=== PATIENT | female | born 1990 ===

== ENCOUNTER 2019-05-19 02:14 | Emergency (ER) | payer SELFPAY ==
[2019-05-19 03:19] LABS: Basophils % (Auto) 0.5 % (0.0-1.8); Eosinophils # (Auto) 0.2 K/mm3 (0.0-0.4); Eosinophils % (Auto) 4.2 % (0.0-4.3); Hematocrit 39.5 % (30.3-42.9); Hemoglobin 13.3 gm/dl (10.1-14.3); Lymphocytes # (Auto) 2.1 K/mm3 (1.2-5.4); Lymphocytes % (Auto) 46.1 % (13.4-35.0); Mean Corpuscular HGB Conc 34 % (30-34); Mean Corpuscular Volume 91 fl (79-97); Monocytes # (Auto) 0.3 K/mm3 (0.0-0.8); Monocytes % (Auto) 6.3 % (0.0-7.3); Platelet Count 305 K/mm3 (140-440); Red Blood Count 4.36 M/mm3 (3.65-5.03); Red Cell Distribution Width 13.6 % (13.2-15.2)
[2019-05-19 03:30] LABS: BUN/Creatinine Ratio 13; Blood Urea Nitrogen 9 mg/dL (7-17); Calcium 9.5 mg/dL (8.4-10.2); Hemolysis Index 5
[2019-05-19 03:45] LABS: Amphetamine Screen,Urine PRESUMPTIVE NEGATIVE; Benzodiazepines Screen,Urine PRESUMPTIVE NEGATIVE; Methadone Screen,Urine PRESUMPTIVE NEGATIVE; Opiate Screen,Urine PRESUMPTIVE NEGATIVE
[2019-05-19 04:01] LABS: Cannabinoid Screen,Urine PRESUMPTIVE POSITIVE; Cocaine Screen,Urine PRESUMPTIVE POSITIVE
[2019-05-19 04:05] LABS: Bilirubin,Urine NEG (Negative); Blood,Urine SM (Negative); Color,Urine Yellow (Yellow); Mucus,Urine 3+ /HPF; Protein,Urine <15 mg/dL mg/dL (Negative)
--- NOTE | 2019-05-19 04:07 | Emergency Department Report ---
ED Psych HPI - General Chief Complaint: Psych Stated Complaint: SI/DEPRESSION/MH EVAL Time Seen by Provider: 05/19/19 03:13 Source: patient, EMS Mode of arrival: Stretcher Limitations: No Limitations - History of Present Illness Initial Comments: 28-year-old female with a past medical history of anxiety and depression presents to the Hospital complaining of suicidal ideation, homelessness, and cocaine abuse. Patient is homeless as of today. She is picked up from a motel by EMS. Patient has history of previous overdose attempt but denies a specific plan today. No physical complaints reported. Patient states she relapsed and is abusing marijuana and cocaine. She is not currently taking any psychiatric medications. Denies auditory hallucinations. No physical complaints reported. - Related Data Home Medications Medication Instructions Recorded Confirmed Last Taken No Known Home Medications [No 05/19/19 05/19/19 Unknown Reported Home Medications] Allergies Allergy/AdvReac Type Severity Reaction Status Date / Time No Known Allergies Allergy Unverified 05/19/19 02:21 ED Review of Systems ROS: Stated complaint: SI/DEPRESSION/MH EVAL Other details as noted in HPI Comment: All other systems reviewed and negative ED Past Medical Hx - Past Medical History Previous Medical History?: Yes Hx Psychiatric Treatment: Yes (depression, anxiety) - Surgical History Past Surgical History?: No - Social History Smoking Status: Current Every Day Smoker - Medications Home Medications: Home Medications Medication Instructions Recorded Confirmed Last Taken Type No Known Home Medications [No 05/19/19 05/19/19 Unknown History Reported Home Medications] ED Physical Exam - General Limitations: No Limitations - Other Other exam information: General: No limitations, patient is alert in no acute distress Head exam: Atraumatic, normocephalic Eyes exam: Normal appearance ENT: Moist mucous membrane Neck exam: Normal inspection, full range of motion Respiratory exam: Clear to auscultation bilateral, no wheezes, rales, crackles Cardiovascular: Normal rate and rhythm Abdomen: Soft, nondistended, and nontender, with normal bowel sounds, no rebound, or guarding, Extremity: No deformity Back: Normal Inspection Neurologic: Alert, oriented x3, speech clear, no gross motor or sensory deficit Psychiatric: Normal mood, affect Skin: No rash ED Course Vital Signs 05/19/19 05/19/19 02:32 02:53 Temperature 98.3 F Pulse Rate 72 Respiratory 16 20 Rate Blood Pressure 118/90 [Left] O2 Sat by Pulse 100 98 Oximetry ED Medical Decision Making - Lab Data Result diagrams: 05/19/19 02:53 05/19/19 02:53 Lab Results 05/19/19 05/19/19 05/19/19 Range/Units 02:53 02:53 02:53 WBC (4.5-11.0) K/mm3 RBC (3.65-5.03) M/mm3 Hgb (10.1-14.3) gm/dl Hct (30.3-42.9) % MCV (79-97) fl MCH (28-32) pg MCHC (30-34) % RDW (13.2-15.2) % Plt Count (140-440) K/mm3 Lymph % (Auto) (13.4-35.0) % Peach % (Auto) (0.0-7.3) % Eos % (Auto) (0.0-4.3) % Baso % (Auto) (0.0-1.8) % Lymph # (1.2-5.4) K/mm3 Peach # (0.0-0.8) K/mm3 Eos # (0.0-0.4) K/mm3 Baso # (0.0-0.1) K/mm3 Seg Neutrophils % (40.0-70.0) % Seg Neutrophils # (1.8-7.7) K/mm3 Sodium (137-145) mmol/L Potassium (3.6-5.0) mmol/L Chloride (98-107) mmol/L Carbon Dioxide (22-30) mmol/L Anion Gap mmol/L BUN (7-17) mg/dL Creatinine (0.7-1.2) mg/dL Estimated GFR ml/min BUN/Creatinine Ratio % Glucose (65-100) mg/dL Calcium (8.4-10.2) mg/dL HCG, Qual (Negative) Urine Color Yellow (Yellow) Urine Turbidity Slightly-cloudy (Clear) Urine pH 6.0 (5.0-7.0) Ur Specific [place] 1.020 (1.003-1.030) Urine Protein <15 mg/dl (Negative) mg/dL Urine Glucose (UA) Neg (Negative) mg/dL Urine Ketones Neg (Negative) mg/dL Urine Blood Sm (Negative) Urine Nitrite Neg (Negative) Urine Bilirubin Neg (Negative) Urine Urobilinogen 2.0 (<2.0) mg/dL Ur Leukocyte Esterase Neg (Negative) Urine WBC (Auto) 8.0 H (0.0-6.0) /HPF Urine RBC (Auto) 5.0 (0.0-6.0) /HPF U Epithel Cells (Auto) 7.0 (0-13.0) /HPF Urine Mucus 3+ /HPF Salicylates < 0.3 L (2.8-20.0) mg/dL Urine Opiates Screen Urine Methadone Screen Acetaminophen < 5.0 L (10.0-30.0) ug/mL Ur Barbiturates Screen Ur Phencyclidine Scrn Ur Amphetamines Screen U Benzodiazepines Scrn Urine Cocaine Screen U Marijuana (THC) Screen Drugs of Abuse Note Plasma/Serum Alcohol (0-0.07) % 05/19/19 05/19/19 05/19/19 Range/Units 02:53 02:53 02:53 WBC (4.5-11.0) K/mm3 RBC (3.65-5.03) M/mm3 Hgb (10.1-14.3) gm/dl Hct (30.3-42.9) % MCV (79-97) fl MCH (28-32) pg MCHC (30-34) % RDW (13.2-15.2) % Plt Count (140-440) K/mm3 Lymph % (Auto) (13.4-35.0) % Peach % (Auto) (0.0-7.3) % Eos % (Auto) (0.0-4.3) % Baso % (Auto) (0.0-1.8) % Lymph # (1.2-5.4) K/mm3 Peach # (0.0-0.8) K/mm3 Eos # (0.0-0.4) K/mm3 Baso # (0.0-0.1) K/mm3 Seg Neutrophils % (40.0-70.0) % Seg Neutrophils # (1.8-7.7) K/mm3 Sodium 139 (137-145) mmol/L Potassium 3.8 (3.6-5.0) mmol/L Chloride 100.6 (98-107) mmol/L Carbon Dioxide 25 (22-30) mmol/L Anion Gap 17 mmol/L BUN 9 (7-17) mg/dL Creatinine 0.7 (0.7-1.2) mg/dL Estimated GFR > 60 ml/min BUN/Creatinine Ratio 13 % Glucose 98 (65-100) mg/dL Calcium 9.5 (8.4-10.2) mg/dL HCG, Qual (Negative) Urine Color (Yellow) Urine Turbidity (Clear) Urine pH (5.0-7.0) Ur Specific [place] (1.003-1.030) Urine Protein (Negative) mg/dL Urine Glucose (UA) (Negative) mg/dL Urine Ketones (Negative) mg/dL Urine Blood (Negative) Urine Nitrite (Negative) Urine Bilirubin (Negative) Urine Urobilinogen (<2.0) mg/dL Ur Leukocyte Esterase (Negative) Urine WBC (Auto) (0.0-6.0) /HPF Urine RBC (Auto) (0.0-6.0) /HPF U Epithel Cells (Auto) (0-13.0) /HPF Urine Mucus /HPF Salicylates (2.8-20.0) mg/dL Urine Opiates Screen Presumptive negative Urine Methadone Screen Presumptive negative Acetaminophen (10.0-30.0) ug/mL Ur Barbiturates Screen Presumptive negative Ur Phencyclidine Scrn Presumptive negative Ur Amphetamines Screen Presumptive negative U Benzodiazepines Scrn Presumptive negative Urine Cocaine Screen Presumptive positive U Marijuana (THC) Screen Presumptive positive Drugs of Abuse Note Disclamer Plasma/Serum Alcohol < 0.01 (0-0.07) % 05/19/19 05/19/19 Range/Units 02:53 02:53 WBC 4.6 (4.5-11.0) K/mm3 RBC 4.36 (3.65-5.03) M/mm3 Hgb 13.3 (10.1-14.3) gm/dl Hct 39.5 (30.3-42.9) % MCV 91 (79-97) fl MCH 31 (28-32) pg MCHC 34 (30-34) % RDW 13.6 (13.2-15.2) % Plt Count 305 (140-440) K/mm3 Lymph % (Auto) 46.1 H (13.4-35.0) % Peach % (Auto) 6.3 (0.0-7.3) % Eos % (Auto) 4.2 (0.0-4.3) % Baso % (Auto) 0.5 (0.0-1.8) % Lymph # 2.1 (1.2-5.4) K/mm3 Peach # 0.3 (0.0-0.8) K/mm3 Eos # 0.2 (0.0-0.4) K/mm3 Baso # 0.0 (0.0-0.1) K/mm3 Seg Neutrophils % 42.9 (40.0-70.0) % Seg Neutrophils # 2.0 (1.8-7.7) K/mm3 Sodium (137-145) mmol/L Potassium (3.6-5.0) mmol/L Chloride (98-107) mmol/L Carbon Dioxide (22-30) mmol/L Anion Gap mmol/L BUN (7-17) mg/dL Creatinine (0.7-1.2) mg/dL Estimated GFR ml/min BUN/Creatinine Ratio % Glucose (65-100) mg/dL Calcium (8.4-10.2) mg/dL HCG, Qual Negative (Negative) Urine Color (Yellow) Urine Turbidity (Clear) Urine pH (5.0-7.0) Ur Specific [place] (1.003-1.030) Urine Protein (Negative) mg/dL Urine Glucose (UA) (Negative) mg/dL Urine Ketones (Negative) mg/dL Urine Blood (Negative) Urine Nitrite (Negative) Urine Bilirubin (Negative) Urine Urobilinogen (<2.0) mg/dL Ur Leukocyte Esterase (Negative) Urine WBC (Auto) (0.0-6.0) /HPF Urine RBC (Auto) (0.0-6.0) /HPF U Epithel Cells (Auto) (0-13.0) /HPF Urine Mucus /HPF Salicylates (2.8-20.0) mg/dL Urine Opiates Screen Urine Methadone Screen Acetaminophen (10.0-30.0) ug/mL Ur Barbiturates Screen Ur Phencyclidine Scrn Ur Amphetamines Screen U Benzodiazepines Scrn Urine Cocaine Screen U Marijuana (THC) Screen Drugs of Abuse Note Plasma/Serum Alcohol (0-0.07) % - Medical Decision Making Patient is suicidal, homeless, and abuses cocaine. 1013 signed. Awaiting mental health evaluation - Differential Diagnosis depression, anxiety, drug abuse, suicidal, homeless Critical Care Time: No Critical care attestation.: If time is entered above; I have spent that time in minutes in the direct care of this critically ill patient, excluding procedure time. ED Disposition Clinical Impression: Suicidal ideations, Cocaine abuse, Homeless, Medical clearance for psychiatric admission Disposition: DC/TX-65 PSY HOSP/PSY UNIT Is pt being admited?: No Condition: Stable
[2019-05-20] MEDS ORDERED: MELATONIN 5 MG TAB PO PRN (12:38)
--- NOTE | 2019-05-20 12:38 | Consultation ---
History of Present Illness - Reason for Consult Consult date: 05/20/19 Reason for consult: suicidal ideation - Chief Complaint Chief complaint: suicidal ideation - History of Present Psychiatric Illness Silvina Quintana is a 28y/o female patient who says she is here because she is"suicidal and didn't feel safe at home." She is asleep. Easily arouses. She's a/o x 3. She is dressed appropriately. She makes fair eye contact. She is speaking in a barely audible tone. The patient says she is "homeless." She says she has diagnoses of "anxiety and depression." She says she's "been off her meds three months." She says she is "depressed and has nowhere to go." The patient says she currently uses "cocaine, weed, ecstasy, and alcohol." She also says she "smokes cigarets pack per day." The patient denies hallucinations of any kind. She says "I will probably hurt myself if I'm sent home. I don't know what else to do. That's why I'm so scared." PAST PSYCHIATRIC HISTORY: Diagnoses: "anxiety and depression" Suicide attempts or Self-harm behavior: denies Prior psychiatric hospitalizations: yes Substance Abuse history: Cocaine, THC, exstasy, alcohol, nicotine Previous psychiatric medications tried: "something for depression" Outpatient treatment: not in three months PAST MEDICAL HISTORY: none reported Family Psychiatric History None reported or documented SOCIAL HISTORY Marital Status: Single Living Arrangements: Homeless Employment Status: Unemployed Access to guns/weapons: Denies Education: some 12th grade History of Abuse: Denies Legal History: denies REVIEW OF SYSTEMS Constitutional: Negative for weight loss ENT: Negative for stridor Respiratory: Negative for cough or hemoptysis All other systems reviewed and are negative MSE Appearance: Dressed appropriately. Behavior: Fair eye contact, calm, cooperative Mood: depressed Affect: Congruent Thought Process: Goal directed Speech: low tone Thought Content Suicidal: Yes Homicidal: Denies Hallucinations: Denies Delusions: None elicited Consciousness: Alert Cognition/Memory: Fair Insight/Judgment: Limited Assessment: Major Depressive Disorder, Severe, w/o Psychotic Features Polysubstance Use Disorder Plan Continue 1013 Medications Lexapro 5mg po daily Melatonin 5mg po qhs prn insomnia Doxepin 10mg po qhs Geodon 10mg IM q6h prn agitation Sitter: defer to primary Medical: Per primary Disposition: The patient meets the requirements for acute inpatient psychiatric treatment. Please transfer to an appropriate psychiatric facility once medically cleared. Will follow until the patient is transferred Please call with any questions or concerns. Thank you for this consult. Medications and Allergies Allergies Allergy/AdvReac Type Severity Reaction Status Date / Time No Known Allergies Allergy Unverified 05/19/19 02:21 Home Medications Medication Instructions Recorded Confirmed Last Taken Type No Known Home Medications [No 05/19/19 05/19/19 Unknown History Reported Home Medications] Mental Status Exam - Vital signs Last Vital Signs Temp 97.7 F 05/20/19 01:37 Pulse 77 05/20/19 08:06 Resp 20 05/20/19 08:06 BP 96/63 05/20/19 08:06 Pulse Ox 99 05/20/19 08:06 Results Result Diagrams: 05/19/19 02:53 05/19/19 02:53 All other labs normal.
[2019-05-20] MEDS ORDERED: ZIPRASIDONE MESYLATE 20 MG VIAL IM PRN (12:39)
[2019-05-20] MEDS ORDERED: ESCITALOPRAM 10 MG TAB PO SCH (13:00)
[2019-05-20] MEDS ORDERED: DOXEPIN 10 MG CAP PO SCH (22:00)
[2019-05-21 07:51] VITALS: BP 102/73
== END 2019-05-21 07:45 ==
LOC: ED 02:14
DX: F41.9 Anxiety disorder, unspecified (principal); F32.9 Major depressive disorder, single episode, unspecified; F14.10 Cocaine abuse, uncomplicated; F17.200 Nicotine dependence, unspecified, uncomplicated; Z59.0 Homelessness
CPT/HCPCS: 36415; 80048; 80307; 80320; 81001; 84703; 85025; G0480

== ENCOUNTER 2020-02-16 17:37 | Emergency (ER) | payer SELFPAY ==
[2020-02-16] MEDS ORDERED: diphenhydrAMINE 50 MG/ML VIAL IM PRN (18:33)
[2020-02-16] MEDS ORDERED: LORazepam 2 MG/ML VIAL IM PRN (18:33)
[2020-02-16] MEDS ORDERED: HALOPERIDOL LACTATE 5 MG/1 ML INJ IM PRN (18:33)
--- NOTE | 2020-02-16 18:39 | Emergency Department Report ---
HPI - General Chief Complaint: Psych Time Seen by Provider: 02/16/20 18:32 - HPI HPI: Room 8 The patient is a 29-year-old female present with a chief complaint of bizarre behavior. Patient has a history of schizophrenia and drug abuse. The patient's cousin states she called the patient this morning to check on her and the patient eventually called her back asking her to pick her up. Cousin states she found the patient with bizarre behavior talking to people that were not there being delusional. The patient also told the cousin that she tried to kill herself by overdosing on meth but would not say when. Patient is erratic and agitated and does not answer questions ED Past Medical Hx - Past Medical History Hx Psychiatric Treatment: Yes (depression, anxiety, schizophrenia) - Surgical History Past Surgical History?: No - Family History Family history: no significant - Social History Smoking Status: Current Every Day Smoker (?) Substance Use Type: None, Methamphetamines - Medications Home Medications: Home Medications Medication Instructions Recorded Confirmed Last Taken Type traZODone [Desyrel] 50 mg PO QHS #15 tab 11/27/19 Unknown Rx ED Review of Systems ROS: Stated complaint: HALLUCINATING Other details as noted in HPI Comment: Unobtainable due to pts medical conditions Physical Exam - Physical Exam Physical Exam: GENERAL: The patient is well-developed well-nourished female lying on stretcher occasionally labile emotionally. [] HEENT: Normocephalic. Atraumatic. Extraocular motions are intact. Patient has moist mucous membranes. NECK: Supple. Trachea midline CHEST/LUNGS: Clear to auscultation. There is no respiratory distress noted. HEART/CARDIOVASCULAR: Regular. There is no tachycardia. There is no gallop rub or murmur. ABDOMEN: There is no abdominal distention. SKIN: There is no rash. There is no edema. There is no diaphoresis. NEURO: The patient is awake and alert. The patient is anxious and agitated. The patient has no focal neurologic deficits. The patient has normal speech (although agitated) and gait. MUSCULOSKELETAL: There is no evidence of acute injury. ED Medical Decision Making - Differential Diagnosis Schizophrenia, suicidal ideation Critical care attestation.: If time is entered above; I have spent that time in minutes in the direct care of this critically ill patient, excluding procedure time. ED Disposition Clinical Impression: Delusional disorder, Bizarre behavior, Schizophrenia, Suicidal ideation Disposition: DC/TX-65 PSY HOSP/PSY UNIT Is pt being admited?: No Does the pt Need Aspirin: No Condition: Stable
[2020-02-16 19:53] LABS: Bilirubin,Urine NEG (Negative); Blood,Urine NEG (Negative); Calcium Oxalate Crystals,Urine 1+; Color,Urine Amber (Yellow); Mucus,Urine 3+ /HPF
[2020-02-16 19:56] LABS: Amphetamine Screen,Urine PRESUMPTIVE POSITIVE; Benzodiazepines Screen,Urine PRESUMPTIVE NEGATIVE; Cannabinoid Screen,Urine PRESUMPTIVE POSITIVE; Cocaine Screen,Urine PRESUMPTIVE POSITIVE; Methadone Screen,Urine PRESUMPTIVE NEGATIVE; Opiate Screen,Urine PRESUMPTIVE NEGATIVE
[2020-02-16 20:31] LABS: BUN/Creatinine Ratio 21; Blood Urea Nitrogen 19 mg/dL (7-17); Calcium 9.1 mg/dL (8.4-10.2); Hemolysis Index 17
[2020-02-16 20:36] LABS: Eosinophils # (Auto) 0.6 K/mm3 (0.0-0.4); Eosinophils % (Auto) 11.7 % (0.0-4.3); Hematocrit 33.1 % (30.3-42.9); Hemoglobin 11.4 gm/dl (10.1-14.3); Lymphocytes % (Auto) 41.6 % (13.4-35.0); Mean Corpuscular HGB Conc 34 % (30-34); Mean Corpuscular Volume 90 fl (79-97); Monocytes # (Auto) 0.4 K/mm3 (0.0-0.8); Monocytes % (Auto) 8.4 % (0.0-7.3); Platelet Count 260 K/mm3 (140-440); Red Blood Count 3.68 M/mm3 (3.65-5.03); Red Cell Distribution Width 12.7 % (13.2-15.2)
[2020-02-17] MEDS ORDERED: POTASSIUM CHLORIDE ER 20 MEQ TAB PO ONE (20:50)
[2020-02-17] MEDS: POTASSIUM CHLORIDE ER 20 MEQ TAB PO SCH (21:07)
[2020-02-18] MEDS: POTASSIUM CHLORIDE ER 20 MEQ TAB PO SCH (09:49)
[2020-02-18] MEDS: NITROFURANTOIN MONOHYD/M-CRYST 100 MG CAP PO SCH ×2 (09:49→22:21)
--- NOTE | 2020-02-18 12:16 | Consultation ---
History of Present Illness - Reason for Consult Consult date: 02/18/20 Reason for consult: bizarre behavior, drugs - History of Present Psychiatric Illness Silvina Quintana is a 29y/o female patient who was brought to the ER by family for bizarre behavior, hallucinations, and drug use, according to medical record. During my interview with the patient she is a/o x 3. She is irritable. She says "everybody is getting in the was of my fcking money." She says "I've been through this a thousand times, committed than back homeless." The patient denies SI/HI or hallucinations of any kind. She verbalizes using "meth and crack." The patient says she has a history of "schizophrenia, anxiety and bipolar." She gave me permission to call her cousin and aunt. I called the cousin who three-wayed the aunt at bedside with the patient. They say they patient is "a threat to her own safety. She's aggressive, hallucinates, and can't take care of herself." The also says the patient "states she tried to overdose on drugs." Her aunt says "she's not going to tell you everything." PAST PSYCHIATRIC HISTORY: Diagnoses: Schizophrenia, anxiety and Bipolar Suicide attempts or Self-harm behavior: Denies Prior psychiatric hospitalizations: "a lot" Substance Abuse history: Cocaine, Meth Previous psychiatric medications tried: "I don't take meds" Outpatient treatment: Not recently PAST MEDICAL HISTORY: None reported Family Psychiatric History: None reported or documented SOCIAL HISTORY Marital Status: Single Living Arrangements: Homeless Employment Status: Unemployed Education: High school History of Abuse: None reported Legal History: None reported REVIEW OF SYSTEMS Constitutional: Negative for weight loss ENT: Negative for stridor Respiratory: Negative for cough or hemoptysis All other systems reviewed and are negative MENTAL STATUS EXAMINATION General Appearance: Dressed appropriately Behavior: fair eye contact, cooperative, irritable Cooperation: Participating/engaged Psychomotor Behavior: Psychomotor normal Mood: Upset Affect and affective range: congruent with mood Thought Process: goal oriented Thought Content: within reality Speech: Normal rate, volume and rhythm Suicidal Ideation: denies SI Homicidal Ideation: Denies HI Hallucinations: Denies Delusions: None elicited Impulse Control: unimpaired Insight and Judgment: Limited insight and judgment Memory: Normal Attention: Normal Orientation: Alert, oriented Assessment and Plan (1) Bipolar Disorder (2) Methamphetamine Use Disorder (3) Cocaine Use Disorder (4) Substance Induced Mood Disorder TREATMENT [address] 125mg po BID Risperidoone 0.25mg po BID Hydroxyzine 25mg po BID Folic acid 1mg po daily Trazodone 50mg po qhs Sitter: Per primary Medical: Per primary Disposition: Recommend acute inpatient psychiatric treatment Will continue to follow. Thank you for this consult. Medications and Allergies Allergies Allergy/AdvReac Type Severity Reaction Status Date / Time No Known Allergies Allergy Unverified 05/19/19 02:21 Home Medications Medication Instructions Recorded Confirmed Last Taken Type traZODone [Desyrel] 50 mg PO QHS #15 tab 11/27/19 Unknown Rx Active Meds: Active Medications Diphenhydramine HCl (Benadryl) 50 mg IM Q6H PRN PRN Reason: Agitation Last Admin: 02/16/20 19:34 Dose: 50 mg Documented by: Haloperidol Lactate (Haldol) 10 mg IM Q8H PRN PRN Reason: Agitation Last Admin: 02/16/20 19:34 Dose: 10 mg Documented by: Lorazepam (Ativan) 2 mg IM Q8H PRN PRN Reason: Agitation Last Admin: 02/16/20 19:34 Dose: 2 mg Documented by: Nitrofurantoin Macrocrystals (Macrobid) 100 mg PO BID [facility] Stop: 02/24/20 22:01 Last Admin: 02/18/20 09:49 Dose: 100 mg Documented by: Potassium Chloride (K-Dur) 40 meq PO QDAY [facility] Last Admin: 02/18/20 09:49 Dose: 40 meq Documented by: Mental Status Exam - Vital signs Last Vital Signs Temp 97.8 F 02/18/20 07:48 Pulse 60 02/18/20 07:48 Resp 20 02/18/20 07:48 BP 110/61 02/18/20 07:48 Pulse Ox 96 02/18/20 07:48 Results Result Diagrams: 02/16/20 19:39 02/18/20 05:35 All other labs normal.
[2020-02-18] MEDS: risperiDONE 0.25 MG TAB PO SCH ×2 (13:37→22:21)
[2020-02-18] MEDS: hydrOXYzine PAMOATE 25 MG CAP PO SCH ×2 (13:37→22:21)
[2020-02-18] MEDS: DIVALPROEX DR 125 MG TAB PO SCH ×2 (13:37→22:21)
[2020-02-18] MEDS: FOLIC ACID 1 MG TAB PO SCH (13:37)
[2020-02-18] MEDS ORDERED: traZODone 50 MG TAB PO SCH (22:00)
[2020-02-19 08:39] LABS: HCG Qualitative,Urine Negative (Negative)
--- NOTE | 2020-02-19 09:32 | Progress Note ---
Subjective - Reason for Consult Consult date: 02/19/20 Reason for consult: erratic behavior, polysubstance abuse - Chief Complaint Chief complaint: During my interview with the patient today, she is lying down. She is a/o x 3. She's upset about being in the hospital. The patient denies SI/HI and hallucinations of any kind, although her aunt and cousin believes the patient is a threat to herself, hallucinates, and told them she attempted to overdose on drugs. They are convinced the patient is not being upfront about what she is feeling. REVIEW OF SYSTEMS Constitutional: Negative for weight loss ENT: Negative for stridor Respiratory: Negative for cough or hemoptysis All other systems reviewed and are negative MENTAL STATUS EXAMINATION General Appearance: Dressed appropriately Behavior: fair eye contact, cooperative, irritable Cooperation: Participating/engaged Psychomotor Behavior: Psychomotor normal Mood: Upset Affect and affective range: congruent with mood Thought Process: goal oriented Thought Content: within reality Speech: Normal rate, volume and rhythm Suicidal Ideation: denies SI Homicidal Ideation: Denies HI Hallucinations: Denies Delusions: None elicited Impulse Control: unimpaired Insight and Judgment: Limited insight and judgment Memory: Normal Attention: Normal Orientation: Alert, oriented Assessment and Plan (1) Bipolar Disorder (2) Methamphetamine Use Disorder (3) Cocaine Use Disorder (4) Substance Induced Mood Disorder TREATMENT [address] 250mg po BID Increased Risperidoone 0.5mg po BID Sitter: Per primary Medical: Per primary Disposition: Recommend acute inpatient psychiatric treatment Will continue to follow. Thank you for this consult. Mental Status Exam - Vital signs Last Vital Signs Temp 97.6 F 02/19/20 08:20 Pulse 70 02/19/20 08:20 Resp 18 02/19/20 08:20 BP 119/72 02/19/20 08:20 Pulse Ox 98 02/19/20 08:20
[2020-02-19] MEDS ORDERED: DIVALPROEX DR 250 MG TAB PO SCH (10:00)
[2020-02-19] MEDS ORDERED: risperiDONE 0.25 MG TAB PO SCH (10:00)
[2020-02-19] MEDS: NITROFURANTOIN MONOHYD/M-CRYST 100 MG CAP PO SCH (11:02)
[2020-02-19] MEDS: FOLIC ACID 1 MG TAB PO SCH (11:02)
[2020-02-19] MEDS: POTASSIUM CHLORIDE ER 20 MEQ TAB PO SCH (11:03)
[2020-02-19] MEDS: hydrOXYzine PAMOATE 25 MG CAP PO SCH (11:05)
[2020-02-19 17:18] VITALS: BP 111/64
== END 2020-02-19 17:45 ==
LOC: ED 17:37
DX: F22 Delusional disorders (principal); R45.851 Suicidal ideations; F25.1 Schizoaffective disorder, depressive type; F17.200 Nicotine dependence, unspecified, uncomplicated; F15.90 Other stimulant use, unspecified, uncomplicated; F41.9 Anxiety disorder, unspecified; Z79.899 Other long term (current) drug therapy
CPT/HCPCS: 36415; 80048; 80307; 81001; 81025; 84132; 85025; 87086; 96372; 99285; J1200; J1630; J2060; Q0177; 80320; G0480

== ENCOUNTER 2020-09-08 16:14 | Emergency (ER) | payer OTHER, SELFPAY ==
[2020-09-08 17:45] LABS: Bilirubin,Urine NEG (Negative); Blood,Urine MOD (Negative); Color,Urine Yellow (Yellow); Protein,Urine <15 mg/dL mg/dL (Negative); Urobilinogen,Urine < 2.0 mg/dL (<2.0)
[2020-09-08 17:53] LABS: Amphetamine Screen,Urine Negative; Benzodiazepines Screen,Urine Negative; Cannabinoid Screen,Urine Negative; Cocaine Screen,Urine Negative; Methadone Screen,Urine Negative; Opiate Screen,Urine Negative
--- NOTE | 2020-09-08 18:26 | Event Note ---
ED Screening Note Date of service: 09/08/20 Time: 18:24 ED Screening Note: 29-year-old female patient with history of bipolar disorder, schizophrenia, anxiety, and depression presents to the emergency department requesting mental health evaluation. Patient has been experiencing auditory and visual hallucinations. Patient describes "angels with dark eyes talking to her at nighttime." States she "feels like people are after her." Patient was recently treated at another local mental health facility. She stayed for 4 days but was discharged without any prescriptions. Prior to her recent hospitalization, patient was taking Asher and Seroquel. It has been over 1 week since she has taken lithium. She states she felt as though lithium was helping but Seroquel did not. She also endorses a history of amphetamine abuse. She has previously experienced suicidal ideations but does not feel suicidal at this time. She states she "wants to get help before she gets to that point." Patient was recently homeless but is currently staying in a fpc, where she feels safe. General: Awake, appropriately interactive, no acute distress. Neck: Supple. Full range of motion intact. Cardiovascular: Normal peripheral perfusion. Pulmonary: No respiratory distress. Patient is speaking normally without use of accessory muscles. Skin: No apparent rashes or lesions. Neurological: No facial asymmetry. Speech is clear. Follows commands. Patient is alert and oriented. Musculoskeletal: Moves all four extremities spontaneously with normal range of motion. Psych: Cooperative. Appropriate mood and affect. I have greeted and performed a focused rapid initial assessment of this patient. A comprehensive ED assessment and evaluation of the patient, analysis of all test results, and completion of the medical decision-making process will be conducted by additional ED providers. This initial assessment/diagnostic orders/clinical plan/treatment(s) is/are subject to change based on patients health status, clinical progression and re-assessment. Further treatment and workup at subsequent clinical provider's discretion. Patient/guardian urged not to elope from the ED as their condition may be serious if not clinically assessed and managed.
[2020-09-08 18:43] LABS: Basophils % (Auto) 0.6 % (0.0-1.8); Eosinophils # (Auto) 0.2 K/mm3 (0.0-0.4); Hematocrit 35.4 % (30.3-42.9); Hemoglobin 12.1 gm/dl (10.1-14.3); Lymphocytes # (Auto) 2.3 K/mm3 (1.2-5.4); Lymphocytes % (Auto) 40.7 % (13.4-35.0); Mean Corpuscular HGB Conc 34 % (30-34); Mean Corpuscular Volume 89 fl (79-97); Monocytes # (Auto) 0.2 K/mm3 (0.0-0.8); Monocytes % (Auto) 4.2 % (0.0-7.3); Platelet Count 291 K/mm3 (140-440); Red Blood Count 3.97 M/mm3 (3.65-5.03); Red Cell Distribution Width 12.7 % (13.2-15.2)
[2020-09-08 19:04] LABS: Alanine Aminotransferase 12 units/L (7-56); Albumin 4.2 g/dL (3.9-5); Blood Urea Nitrogen 9 mg/dL (7-17); Calcium 8.8 mg/dL (8.4-10.2); Hemolysis Index 11
[2020-09-08 19:05] LABS: BUN/Creatinine Ratio 15
[2020-09-08] MEDS ORDERED: traZODone 50 MG TAB PO ONE (22:43)
--- NOTE | 2020-09-09 00:16 | Emergency Department Report ---
ED General Adult HPI - General Chief complaint: Psych Stated complaint: MH EVALUATIONS/HALLUCINATIONS Time Seen by Provider: 09/08/20 21:09 Source: patient Mode of arrival: Ambulatory Limitations: No Limitations - History of Present Illness Initial comments: The patient presents to the emergency department with a chief complaint of auditory and visual hallucinations. Patient states she has a history of schizophrenia but is also take amphetamines. Patient denies homicidal or suicidal ideations on my examination. Patient has no other complaints. -: unknown Improves with: none Worsens with: none Associated Symptoms: denies other symptoms Treatments Prior to Arrival: none - Related Data Allergies Allergy/AdvReac Type Severity Reaction Status Date / Time No Known Allergies Allergy Unverified 05/19/19 02:21 ED Review of Systems ROS: Stated complaint: MH EVALUATIONS/HALLUCINATIONS Other details as noted in HPI Constitutional: denies: chills, fever Eyes: denies: eye pain, eye discharge, vision change ENT: denies: ear pain, throat pain Respiratory: denies: cough, shortness of breath, wheezing Cardiovascular: denies: chest pain, palpitations Endocrine: no symptoms reported Gastrointestinal: denies: abdominal pain, nausea, diarrhea Genitourinary: denies: urgency, dysuria, discharge Musculoskeletal: denies: back pain, joint swelling, arthralgia Skin: denies: rash, lesions Neurological: denies: headache, weakness, paresthesias Psychiatric: auditory hallucinations, visual hallucinations. denies: anxiety, depression, homicidal thoughts, suicidal thoughts Hematological/Lymphatic: denies: easy bleeding, easy bruising ED Past Medical Hx - Past Medical History Hx Psychiatric Treatment: Yes (depression, anxiety, schizophrenia) - Surgical History Past Surgical History?: No - Social History Smoking Status: Current Every Day Smoker ED Physical Exam - General Limitations: No Limitations General appearance: alert, in no apparent distress - Head Head exam: Present: atraumatic, normocephalic - Eye Eye exam: Present: normal appearance - ENT ENT exam: Present: mucous membranes moist - Neck Neck exam: Present: normal inspection - Respiratory Respiratory exam: Present: normal lung sounds bilaterally. Absent: respiratory distress - Cardiovascular Cardiovascular Exam: Present: regular rate, normal rhythm. Absent: systolic murmur, diastolic murmur, rubs, gallop - GI/Abdominal GI/Abdominal exam: Present: soft, normal bowel sounds. Absent: distended, tenderness - Extremities Exam Extremities exam: Present: normal inspection - Back Exam Back exam: Present: normal inspection - Neurological Exam Neurological exam: Present: alert, oriented X3, CN II-XII intact. Absent: motor sensory deficit - Psychiatric Psychiatric exam: Present: normal affect, normal mood - Skin Skin exam: Present: warm, dry, intact, normal color. Absent: rash ED Course Vital Signs 09/08/20 09/08/20 17:06 22:01 Temperature 98.6 F 98.2 F Pulse Rate 98 H 99 H Respiratory 18 18 Rate Blood Pressure 115/75 Blood Pressure 120/92 [Right] O2 Sat by Pulse 100 99 Oximetry ED Medical Decision Making - Lab Data Result diagrams: 09/08/20 18:30 09/08/20 18:30 Lab Results 09/08/20 09/08/20 09/08/20 Range/Units 17:25 17:25 18:30 WBC 5.7 (4.5-11.0) K/mm3 RBC 3.97 (3.65-5.03) M/mm3 Hgb 12.1 (10.1-14.3) gm/dl Hct 35.4 (30.3-42.9) % MCV 89 (79-97) fl MCH 30 (28-32) pg MCHC 34 (30-34) % RDW 12.7 L (13.2-15.2) % Plt Count 291 (140-440) K/mm3 Lymph % (Auto) 40.7 H (13.4-35.0) % [place] % (Auto) 4.2 (0.0-7.3) % Eos % (Auto) 3.0 (0.0-4.3) % Baso % (Auto) 0.6 (0.0-1.8) % Lymph # (Auto) 2.3 (1.2-5.4) K/mm3 [place] # (Auto) 0.2 (0.0-0.8) K/mm3 Eos # (Auto) 0.2 (0.0-0.4) K/mm3 Baso # (Auto) 0.0 (0.0-0.1) K/mm3 Seg Neutrophils % 51.5 (40.0-70.0) % Seg Neutrophils # 3.0 (1.8-7.7) K/mm3 Sodium (137-145) mmol/L Potassium (3.6-5.0) mmol/L Chloride (98-107) mmol/L Carbon Dioxide (22-30) mmol/L Anion Gap mmol/L BUN (7-17) mg/dL Creatinine (0.6-1.2) mg/dL Estimated GFR ml/min BUN/Creatinine Ratio % Glucose (65-100) mg/dL Calcium (8.4-10.2) mg/dL Total Bilirubin (0.1-1.2) mg/dL AST (5-40) units/L ALT (7-56) units/L Alkaline Phosphatase (35-129) units/L Total Protein (6.3-8.2) g/dL Albumin (3.9-5) g/dL Albumin/Globulin Ratio % TSH (0.270-4.200) mlU/mL HCG, Qual (Negative) Urine Color Yellow (Yellow) Urine Turbidity Clear (Clear) Urine pH 6.0 (5.0-7.0) Ur Specific [place] 1.009 (1.003-1.030) Urine Protein <15 mg/dl (Negative) mg/dL Urine Glucose (UA) Neg (Negative) mg/dL Urine Ketones Neg (Negative) mg/dL Urine Blood Mod (Negative) Urine Nitrite Neg (Negative) Urine Bilirubin Neg (Negative) Urine Urobilinogen < 2.0 (<2.0) mg/dL Ur Leukocyte Esterase Neg (Negative) Urine WBC (Auto) 1.0 (0.0-6.0) /HPF Urine RBC (Auto) 2.0 (0.0-6.0) /HPF U Epithel Cells (Auto) 2.0 (0-13.0) /HPF Salicylates (2.8-20.0) mg/dL Urine Opiates Screen Negative Urine Methadone Screen Negative Acetaminophen (10.0-30.0) ug/mL Ur Barbiturates Screen Negative Ur Phencyclidine Scrn Negative Ur Amphetamines Screen Negative U Benzodiazepines Scrn Negative [place] (0.0-1.2) mmol/L Urine Cocaine Screen Negative U Marijuana (THC) Screen Negative Drugs of Abuse Note Disclamer Plasma/Serum Alcohol (0-0.07) % 09/08/20 09/08/20 09/08/20 Range/Units 18:30 18:30 18:30 WBC (4.5-11.0) K/mm3 RBC (3.65-5.03) M/mm3 Hgb (10.1-14.3) gm/dl Hct (30.3-42.9) % MCV (79-97) fl MCH (28-32) pg MCHC (30-34) % RDW (13.2-15.2) % Plt Count (140-440) K/mm3 Lymph % (Auto) (13.4-35.0) % [place] % (Auto) (0.0-7.3) % Eos % (Auto) (0.0-4.3) % Baso % (Auto) (0.0-1.8) % Lymph # (Auto) (1.2-5.4) K/mm3 [place] # (Auto) (0.0-0.8) K/mm3 Eos # (Auto) (0.0-0.4) K/mm3 Baso # (Auto) (0.0-0.1) K/mm3 Seg Neutrophils % (40.0-70.0) % Seg Neutrophils # (1.8-7.7) K/mm3 Sodium 136 L (137-145) mmol/L Potassium 3.7 (3.6-5.0) mmol/L Chloride 101.5 (98-107) mmol/L Carbon Dioxide 21 L (22-30) mmol/L Anion Gap 17 mmol/L BUN 9 (7-17) mg/dL Creatinine 0.6 (0.6-1.2) mg/dL Estimated GFR > 60 ml/min BUN/Creatinine Ratio 15 % Glucose 93 (65-100) mg/dL Calcium 8.8 (8.4-10.2) mg/dL Total Bilirubin < 0.20 (0.1-1.2) mg/dL AST 17 (5-40) units/L ALT 12 (7-56) units/L Alkaline Phosphatase 60 (35-129) units/L Total Protein 7.1 (6.3-8.2) g/dL Albumin 4.2 (3.9-5) g/dL Albumin/Globulin Ratio 1.4 % TSH 1.650 (0.270-4.200) mlU/mL HCG, Qual (Negative) Urine Color (Yellow) Urine Turbidity (Clear) Urine pH (5.0-7.0) Ur Specific [place] (1.003-1.030) Urine Protein (Negative) mg/dL Urine Glucose (UA) (Negative) mg/dL Urine Ketones (Negative) mg/dL Urine Blood (Negative) Urine Nitrite (Negative) Urine Bilirubin (Negative) Urine Urobilinogen (<2.0) mg/dL Ur Leukocyte Esterase (Negative) Urine WBC (Auto) (0.0-6.0) /HPF Urine RBC (Auto) (0.0-6.0) /HPF U Epithel Cells (Auto) (0-13.0) /HPF Salicylates < 0.3 L (2.8-20.0) mg/dL Urine Opiates Screen Urine Methadone Screen Acetaminophen (10.0-30.0) ug/mL Ur Barbiturates Screen Ur Phencyclidine Scrn Ur Amphetamines Screen U Benzodiazepines Scrn [place] 0.1 (0.0-1.2) mmol/L Urine Cocaine Screen U Marijuana (THC) Screen Drugs of Abuse Note Plasma/Serum Alcohol (0-0.07) % 09/08/20 09/08/20 09/08/20 Range/Units 18:30 18:30 18:30 WBC (4.5-11.0) K/mm3 RBC (3.65-5.03) M/mm3 Hgb (10.1-14.3) gm/dl Hct (30.3-42.9) % MCV (79-97) fl MCH (28-32) pg MCHC (30-34) % RDW (13.2-15.2) % Plt Count (140-440) K/mm3 Lymph % (Auto) (13.4-35.0) % [place] % (Auto) (0.0-7.3) % Eos % (Auto) (0.0-4.3) % Baso % (Auto) (0.0-1.8) % Lymph # (Auto) (1.2-5.4) K/mm3 [place] # (Auto) (0.0-0.8) K/mm3 Eos # (Auto) (0.0-0.4) K/mm3 Baso # (Auto) (0.0-0.1) K/mm3 Seg Neutrophils % (40.0-70.0) % Seg Neutrophils # (1.8-7.7) K/mm3 Sodium (137-145) mmol/L Potassium (3.6-5.0) mmol/L Chloride (98-107) mmol/L Carbon Dioxide (22-30) mmol/L Anion Gap mmol/L BUN (7-17) mg/dL Creatinine (0.6-1.2) mg/dL Estimated GFR ml/min BUN/Creatinine Ratio % Glucose (65-100) mg/dL Calcium (8.4-10.2) mg/dL Total Bilirubin (0.1-1.2) mg/dL AST (5-40) units/L ALT (7-56) units/L Alkaline Phosphatase (35-129) units/L Total Protein (6.3-8.2) g/dL Albumin (3.9-5) g/dL Albumin/Globulin Ratio % TSH (0.270-4.200) mlU/mL HCG, Qual Negative (Negative) Urine Color (Yellow) Urine Turbidity (Clear) Urine pH (5.0-7.0) Ur Specific [place] (1.003-1.030) Urine Protein (Negative) mg/dL Urine Glucose (UA) (Negative) mg/dL Urine Ketones (Negative) mg/dL Urine Blood (Negative) Urine Nitrite (Negative) Urine Bilirubin (Negative) Urine Urobilinogen (<2.0) mg/dL Ur Leukocyte Esterase (Negative) Urine WBC (Auto) (0.0-6.0) /HPF Urine RBC (Auto) (0.0-6.0) /HPF U Epithel Cells (Auto) (0-13.0) /HPF Salicylates (2.8-20.0) mg/dL Urine Opiates Screen Urine Methadone Screen Acetaminophen 5.0 L (10.0-30.0) ug/mL Ur Barbiturates Screen Ur Phencyclidine Scrn Ur Amphetamines Screen U Benzodiazepines Scrn [place] (0.0-1.2) mmol/L Urine Cocaine Screen U Marijuana (THC) Screen Drugs of Abuse Note Plasma/Serum Alcohol 0.02 (0-0.07) % - Medical Decision Making Patient was seen by mental health and after evaluation they asked for the patient to be placed on a 1013. ED hold apply Medically cleared Critical care attestation.: If time is entered above; I have spent that time in minutes in the direct care of this critically ill patient, excluding procedure time. ED Disposition Clinical Impression: Auditory hallucinations Disposition: DC-01 TO HOME OR SELFCARE Is pt being admited?: No Does the pt Need Aspirin: No Condition: Stable Referrals: PRIMARY CARE, [Primary Care Provider] - 3-5 Days
[2020-09-09 07:33] VITALS: BP 110/62
--- NOTE | 2020-09-09 11:36 | Consultation ---
History of Present Illness - Reason for Consult Consult date: 09/09/20 Reason for consult: MHE Requesting physician: CARL RUFFIN - History of Present Psychiatric Illness Per ED Provider: The patient presents to the emergency department with a chief complaint of auditory and visual hallucinations. Patient states she has a history of schizophrenia but is also take amphetamines. Patient denies homicidal or suicidal ideations on my examination. Patient has no other complaints. Psych HPI Patient is a 29-year-old single, currently unemployed -[place] female with past psychiatric history of schizophrenia anxiety and bipolar who presented to the ED with chief complaint of having hallucinations. Patient states that she has been having hallucination after doing drugs specifically meth, she reports that they are buying drugs on the street for quite a while after she was stopped on outpatient prescription medication for anxiety so many years ago. She endorses seeing dark images/visions. Patient states that she is not suicidal, or homicidal that she is here because she wants substance abuse treatment for meth. Patient stated that she had presented to [facility] but was informed she needs to be stabilized on the medication before she can be admitted for substance. Patient states that she is to be on trazodone and lithium. PAST PSYCHIATRIC HISTORY: Diagnoses: Schizophrenia, anxiety and Bipolar Suicide attempts or Self-harm behavior: Denies Prior psychiatric hospitalizations: "a lot" Substance Abuse history: Cocaine, Meth Previous psychiatric medications tried: "I don't take meds" Outpatient treatment: Not recently PAST MEDICAL HISTORY: None reported Family Psychiatric History: None reported or documented SOCIAL HISTORY Marital Status: Single Living Arrangements: With family Employment Status: Unemployed Education: High school History of Abuse: None reported Legal History: None reported REVIEW OF SYSTEMS Constitutional: Negative for weight loss ENT: Negative for stridor Respiratory: Negative for cough or hemoptysis All other systems reviewed and are negative MENTAL STATUS EXAMINATION General Appearance: Dressed appropriately Behavior: fair eye contact, cooperative, irritable Cooperation: Participating/engaged Psychomotor Behavior: Psychomotor normal Mood: Upset Affect and affective range: congruent with mood Thought Process: goal oriented Thought Content: within reality Speech: Normal rate, volume and rhythm Suicidal Ideation: denies SI Homicidal Ideation: Denies HI Hallucinations: Denies Delusions: None elicited Impulse Control: unimpaired Insight and Judgment: Limited insight and judgment Memory: Normal Attention: Normal Orientation: Alert, oriented Assessment and Plan - Psychiatric problem (1) Illicit drug use Current Visit: Yes Status: Acute Treatment Plan We will restart patient medication, patient aware and informed with do not do substance abuse treatment that has to be in an outpatient program. MEDICATIONS: Risks, benefits and alternatives of medications discussed with the patient, questions answered and consent obtained from patient. PSYCHOTHERAPY: Supportive psychotherapy provided MEDICAL: Per primary team DELIRIUM PRECAUTIONS: Please re-orient patient frequently, keep lights on during the day, and minimize benzodiazepines and opiates as these medications could worsen patient's confusion. 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 Case discussed with Dr. Ruiz who agrees with current disposition LEGAL STATUS: 1013 rescinded FOLLOW-UP: Will sign off Thank you for the consult. Please contact with any questions and/or concerns. Medications and Allergies Allergies Allergy/AdvReac Type Severity Reaction Status Date / Time No Known Allergies Allergy Unverified 05/19/19 02:21 Home Medications Medication Instructions Recorded Confirmed Last Taken Type [place] Carbonate 300 mg PO BID 09/09/20 09/09/20 Unknown History [place] Carbonate [Eskalith] 300 mg PO BID #60 capsule 09/09/20 Unknown Rx traZODone [Desyrel] 50 mg PO QHS #30 tab 09/09/20 Unknown Rx Mental Status Exam - Vital signs Last Vital Signs Temp 97.9 F 09/09/20 07:32 Pulse 65 09/09/20 07:32 Resp 18 09/09/20 07:32 BP 110/62 09/09/20 07:32 Pulse Ox 100 09/09/20 07:32 Results Result Diagrams: 09/08/20 18:30 09/08/20 18:30 Abnormal lab results 09/08/20 09/08/20 09/08/20 Range/Units 18:30 18:30 18:30 RDW 12.7 L (13.2-15.2) % Lymph % (Auto) 40.7 H (13.4-35.0) % Sodium 136 L (137-145) mmol/L Carbon Dioxide 21 L (22-30) mmol/L Salicylates < 0.3 L (2.8-20.0) mg/dL Acetaminophen (10.0-30.0) ug/mL 09/08/20 Range/Units 18:30 RDW (13.2-15.2) % Lymph % (Auto) (13.4-35.0) % Sodium (137-145) mmol/L Carbon Dioxide (22-30) mmol/L Salicylates (2.8-20.0) mg/dL Acetaminophen 5.0 L (10.0-30.0) ug/mL All other labs normal. Assessment and Plan - Psychiatric problem (1) Illicit drug use Current Visit: Yes Status: Acute
--- NOTE | 2020-09-09 12:38 | Event Note ---
I discussed case with mental health team. Patient is cleared for discharge home. 1013 has been rescinded. Prescription provided by our psychiatric team.
== END 2020-09-09 12:53 | disposition home or self-care (01) ==
LOC: EEVIPCON 16:14 → ED 16:14
DX: R44.0 Auditory hallucinations (principal); R44.1 Visual hallucinations; Z20.822 Contact with and (suspected) exposure to COVID-19; F32.9 Major depressive disorder, single episode, unspecified; F41.9 Anxiety disorder, unspecified; F17.200 Nicotine dependence, unspecified, uncomplicated
CPT/HCPCS: 36415; 80053; 80178; 80307; 81001; 84443; 84703; 85025; 99284; U0003; 80320; G0480